=== PATIENT | male | born 1995 | race Caucasian/White ===

== ENCOUNTER 2020-11-29 11:25 | Emergency (ER) | payer OTHER ==
[~2020-11-29 11:25] MED LIST: CLINDAMYCIN HC150 MG PO; DEPAKOTE250 MG PO; NORCO 5-325 TA1 EACH PO; ZOFRAN4 MG PO
[2020-11-29] MEDS ORDERED: IBUPROFEN800 MG PO (13:27)
== END 2020-11-29 13:49 | disposition home or self-care (01) ==
LOC: ER1 11:25
DX: T14.8XXA Other injury of unspecified body region, initial encounter (principal); S60.221A Contusion of right hand, initial encounter; V48.6XXA Car passenger injured in noncollision transport accident in traffic accident, initial encounter; Y92.410 Unspecified street and highway as the place of occurrence of the external cause
CPT/HCPCS: 96372; 99283; J1885